=== PATIENT | male | born 1955 | race Caucasian/White ===

== ENCOUNTER 2017-05-16 08:37 | Inpatient (IN) | payer OTHER ==
[~2017-05-16] VITALS: Ht 172.7 cm; Wt 74.0 kg
--- NOTE | ~2017-05-16 | TEE ---
[facility] [address] [place] [address] TRANSESOPHAGEAL ECHOCARDIOGRAM Name: MICHELLE NGO Room #: 418-P ADM IN M.R.#: [id number] Admission: 05/17/17 Attend Phys: Pepito Mccoy MD Discharge: Date of : 59 Date of Service: 05/18/17 0959 Report #: [id number] THIS REPORT FOR: //name// APPROVED REPORT Study performed: 05/18/2017 08:41:40 EXAM: Comprehensive 2D, Doppler, and color-flow Echocardiogram Patient Location: In-Patient Room #: 418 Status: routine BSA: 1.85 HR: 91 bpm BP: 117/74 mmHg Other Information Study Quality: Excellent Indications Congestive Heart Failure Right atrial mass Echo Enhancing Agent Indication: Rule out Shunt Agent(s) / Amount(s) Used: Agitated Saline 7 cc Procedure After obtaining informed consent, patient underwent transesophageal echo in the [employer]. Type of Sedation : Conscious Sedation Sedation was administered by Lashonda Roman RN. Sedation start time: 845 Case end Time: 856 Sedation was achieved intravenously with: Versed (3 mg) Fentanyl (25 mcg) Echo enhancement indication: R/O Septal defect. Echo enhancement agent administered: Agitated Saline The JASON was performed without complications. Throughout the procedure, the blood pressure, pulse oximetry, cardiac rhythm, and rate were monitored. The patient tolerated the procedure without adverse effects. Recovery from conscious sedation was uneventful and vital signs were stable. Left Ventricle [facility] [address] [place] [address] TRANSESOPHAGEAL ECHOCARDIOGRAM Name: MICHELLE NGO Room #: 418-P ADM IN M.R.#: [id number] Admission: 05/17/17 Attend Phys: Pepito Mccoy MD Discharge: Date of : 59 Date of Service: 05/18/17 0959 Report #: [id number] The left ventricle is normal size. There is normal left ventricular wall thickness. Left ventricular ejection fraction is severely decreased. LVEF is 25%. Right Ventricle Right ventricle is dilated. Right ventricle is hypokinetic. Atria Left atrium is dilated. Atrial septal aneurysm. Small amount of right to left shunting consistent with PPO Right atrium is dilated. 2.0cm long, 1.0cm wide, braod-based oval irregular bordered mass in right atrium at base near SVC/RA junction. Differential considerations include residual, organized thrombus following catheter removal, vegeation; primary cardiac tumor. Cor triatriatum. Aortic Valve The aortic valve is normal in structure, trileaflet. No aortic regurgitation is present. There is no aortic valvular stenosis. Mitral Valve The mitral valve is normal in structure. Trace mitral regurgitation. No evidence of mitral valve stenosis. Tricuspid Valve The tricuspid valve is normal in structure. There is moderate tricuspid regurgitation. Pulmonic Valve The pulmonary valve is normal in structure. There is no pulmonic valvular regurgitation. Great Vessels The aortic root is normal in size. Mild calcific plaquing of aorta. No aneurysm Pericardium There is no pericardial effusion. Critical Notification Critical Value: Yes Physician Notified Date: 05/18/2017 <Conclusion> [facility] [address] [place] [address] TRANSESOPHAGEAL ECHOCARDIOGRAM Name: MICHELLE NGO Room #: 418-P ADM IN .R.#: [id number] Admission: 05/17/17 Attend Phys: Pepito Mccoy MD Discharge: Date of : 59 Date of Service: 05/18/17 0959 Report #: [id number] Left ventricular ejection fraction is severely decreased. LVEF is 25%. Right ventricle is dilated. Both atria are dilated dilated. 2.0cm long, 1.0cm wide, broad-based oval irregular bordered heterogeneous mass in right atrium at base near SVC/RA junction. Differential considerations include residual, organized thrombus following catheter removal, vegeation; primary cardiac tumor. Atrial septal aneurysm. Small amount of right to left shunting consistent with PPO. cor triatriatum The aortic valve is normal in structure, trileaflet. No aortic regurgitation or stenosis The mitral valve is normal in structure. Trace mitral regurgitation. There is no pericardial effusion. <ELECTRONICALLY SIGNED> By: Jacek Pate MD, [facility] 05/18/17 0959 8 8 Jacek Pate MD, [facility] /INF
--- NOTE | ~2017-05-16 | EKG ---
[address] [address] ELECTROCARDIOGRAM REPORT Name: MICHELLE NGO Room #: 418-P ADM IN M.R.#: [id number] Admission: 05/17/17 Attend Phys: Pepito Mccoy MD Discharge: Date of : 59 Report #: [id number] THIS REPORT FOR: //name// [facility] Test Date: 2017-05-23 Test Time: 14:52:50 Pat Name: MICHELLE NGO Department: Room: 418 P Gender: M [employer]: Hortencia MARES : 1955 Requested By: Barbra Young Order Number: [id number] MD: Serafin Velarde Measurements Intervals [place] Rate: 94 P: 19 KS: 156 QRS: 12 QRSD: 89 T: 204 QT: 334 QTc: 418 Interpretive Statements Sinus rhythm Borderline repolarization abnormality No previous ECG available for comparison Electronically Signed On 05-23-2017 17:18:55 CDT by Serafin Velarde [email or web address] <ELECTRONICALLY SIGNED> By: Serafin Velarde MD 05/23/17 1718 1452 1452 MD ARCADIO Gallardo
--- NOTE | ~2017-05-16 | HC ---
[facility] [place] [address] CONSULTATION Name: MICHELLE NGO Room #: 418-P ADM IN M.R.#: [id number] Admission: 05/17/17 Attend Phys: Pepito Mccoy MD Discharge: Date of : 59 Report #: [id number] THIS REPORT FOR: //name// CC: Pepito Mccoy DATE OF SERVICE: 05/17/2017 ATTENDING PHYSICIAN: Dr. Mccoy. REASON FOR CONSULTATION: Bacteremia. HISTORY OF PRESENT ILLNESS: A 61-year-old white man with longstanding diabetes mellitus, was residing at [facility] after right BKA, when he developed significant hypoglycemia and altered mental status. His initial workup included a couple of blood cultures that are reported today to show gram-positive cocci. The patient is a rather poor historian. Most of the information is gathered from the review of records. Currently, the patient is awake, comfortable, denies much of any complaints, tells me he has some redness on the right hand, which is obvious as well as having suffered trauma to the right knee recently after having fallen post right BKA. I discussed about possibly removing the hemodialysis catheter on the left chest and he tells me he was aware of that already. PAST MEDICAL HISTORY: Diabetes mellitus of longstanding, complicated by renal failure requiring hemodialysis. The patient has a diagnosis of hypertension, chronic obstructive pulmonary disease, congestive heart failure, polyneuropathy. Diagnosis of acute and subacute endocarditis has been entered on computer as well. I have no significant information regarding that and I will discuss with Dr. Mccoy. Episode of hypoglycemia and hypothermia was detected at the senior living facility, hypoglycemia has now resolved. History of left-sided chest tunneled dialysis catheter. History of right arm AV fistula. DRUG ALLERGIES: None listed. MEDICATIONS: The patient is currently on treatment with vancomycin 500 mg post-hemodialysis 3 times weekly, doxycycline 100 mg p.o. b.i.d., has received vancomycin 1000 mg IV yesterday as well as Zosyn 4.5 grams IV single dose. He is also on treatment with multivitamins daily, cholecalciferol 1000 units daily, warfarin 2 mg p.o. daily, midodrine 10 mg p.o. t.i.d., sevelamer 800 mg p.o. t.i.d., docusate 100 p.o. b.i.d., lactobacillus acidophilus 1 capsule b.i.d., sodium bicarbonate 650 mg p.o. b.i.d., colestipol 1 gram b.i.d. p.r.n., Zolpidem tartrate 5 mg at bedtime p.r.n. SOCIAL HISTORY: See H and P. FAMILY HISTORY: See H and P. [address] [address] CONSULTATION Name: MICHELLE NGO Room #: 418-P [facility] IN M.R.#: [id number] Admission: 05/17/17 Attend Phys: Pepito Mccoy MD Discharge: Date of : 59 Report #: [id number] REVIEW OF SYSTEMS: Noncontributory. PHYSICAL EXAMINATION: GENERAL: Chronically ill-appearing white man, not toxic looking, unable to give significant information. VITAL SIGNS: Was hypothermic yesterday with temperature 93.3, pulse 90, respirations 20, BP 116/72. Today's temperature is 98. HEENMT: Head normocephalic, atraumatic. Pupils reactive. Mouth, no thrush. NECK: Supple. LUNGS: Few basilar crackles. CHEST: Revealed left-sided tunneled dialysis catheter. HEART: S1, S2. No gallop or murmur. ABDOMEN: Soft, no masses or megaly. EXTREMITIES: Reveal some redness of the right distal forearm and some deformities of the right wrist and a right antecubital fossa AV fistula with palpable thrill. The right BKA stump looks fine. There is traumatic lesion on the right knee area with area of hematoma formation, superficial skin breakdown. Status post amputation of the left big toe. Pretibial edema. NEUROLOGIC: Possible paresis, left side. LABORATORY DATA: Sodium 126, potassium 5.1, BUN 84, creatinine 4.2, glucose 159, calcium 8. Protime 73.2, INR 7.4. White blood cell count was 10,600 yesterday and today is 19,400, hemoglobin 10.6 g/dL, platelets 113,000. The white blood cell count differential revealed 90% segmented neutrophils yesterday. MICROBIOLOGY DATA: Blood cultures 2/2 samples revealed gram-positive cocci. ASSESSMENT: 1. Gram-positive cocci bacteremia, possibly infected dialysis catheter. 2. Cellulitis, right upper extremity. 3. Right knee trauma, superficial skin breakdown. 4. Longstanding diabetes mellitus with episode of hypoglycemia. 5. End-stage renal disease, on hemodialysis. 6. Status post recent right below-knee amputation. 7. History of endocarditis. SUGGESTIONS AND RECOMMENDATIONS: We will repeat blood cultures x 2. Consider removing dialysis catheter. Continue vancomycin. Discontinue doxycycline. Echocardiogram. All records to document previous episode of endocarditis. We will discuss situation with Dr. Mccoy. [facility] [address] [place] [address] CONSULTATION Name: MICHELLE NGO Room #: 418-P ADM IN M.R.#: [id number] Admission: 05/17/17 Attend Phys: Pepito Mccoy MD Discharge: Date of : 59 Report #: [id number] Mccoy, thank you for requesting my suggestions. <ELECTRONICALLY SIGNED> By: Keith Velarde MD 05/17/17 1329 1052 1241 Keith Velarde MD /nt
--- NOTE | ~2017-05-16 | HC ---
[facility] [place] [address] CONSULTATION Name: MICHELLE NGO Room #: 418-P [facility] IN M.R.#: [id number] Admission: 05/17/17 Attend Phys: Pepito Mccoy MD Discharge: 05/28/17 Date of : 59 Report #: [id number] THIS REPORT FOR: //name// CC: Pepito Mccoy CHIEF COMPLAINT: Right wrist cellulitis. HISTORY OF PRESENT ILLNESS: This is a 61-year-old gentleman, admitted with right upper extremity cellulitis. He has a long history of endocarditis. He was noted to have a positive blood culture. Orthopedics was consulted to evaluate the right wrist. PAST MEDICAL AND SURGICAL HISTORY: Significant for endocarditis, muscle weakness, end-stage renal disease, hypertension, chronic obstructive pulmonary disease, heart failure, polyneuropathy, essential tremor and vitamin D deficiency. MEDICATIONS: Noted on the APR. ALLERGIES: None. PHYSICAL EXAMINATION: VITAL SIGNS: Notes a temperature of 36.4, pulse is 91, respiratory rate is 18. EXTREMITIES: Examination of the right wrist notes some erythema surrounding the wrist from the dorsum of his wrist extending proximally approximately 10 cm. He has fluid range of motion through his wrist joint without significant increase in pain. He can fully extend his fingers and flex them as well. Motor is intact distally. He has good capillary refill. Ultrasound of the wrist notes tenosynovitis. LABORATORY DATA: His glucose is running up to 300. Blood cultures note gram-positive cocci. IMPRESSION: Right wrist cellulitis, possible tenosynovitis, possible abscess. PLAN: At this point, the plan would be to proceed with an MRI scan to be done as soon as possible to rule out an abscess. We will follow along with you. Thank you very much for allowing me to participate in the care of this pleasant patient. <ELECTRONICALLY SIGNED> By: Clarence Steve MD 05/29/17 0740 1326 1333 Clarence Steve MD /nt
--- NOTE | ~2017-05-16 | O ---
[facility] [place] [address] OPERATIVE REPORT Name: MICHELLE NGO Room #: 418-P [facility] IN M.R.#: [id number] Admission: 05/17/17 Attend Phys: Pepito Mccoy MD Discharge: Date of : 59 Report #: [id number] THIS REPORT FOR: //name// CC: Pepito Mccoy DATE OF SERVICE: 05/24/2017 PREOPERATIVE DIAGNOSES: Right dorsal infectious tenosynovitis, right septic wrist and noninfectious right volar flexor tenosynovitis, osteomyelitis. POSTOPERATIVE DIAGNOSES: 1. Right infectious dorsal extensor tenosynovitis. 2. Right septic wrist with osteomyelitis. 3. Right infectious flexor tenosynovitis. PROCEDURE PERFORMED: 1. Right debridement dorsal extensor tendon sheath. 2. Right debridement of soft tissue and bone, right wrist and carpal bones. 3. Debridement right volar flexor compartment/tendon volar flexor compartment. SURGEON: Alana Stewart MD ANESTHESIA: Axillary nerve block anesthesia. ESTIMATED BLOOD LOSS: 100 mL. COMPLICATIONS: None. CONDITION: Stable. DISPOSITION: Recovery room. Drains were placed x 2, one dorsally and one volarly. TOURNIQUET TIME: 72 minutes on forearm. SPECIMENS: Soft tissue and swabs were sent to microbiology. INDICATIONS FOR THE PROCEDURE: The risks, benefits, alternatives and complications were discussed that included but were not limited to infection, damage to vessels or nerves, incomplete relief of his symptoms. Informed consent was obtained. The correct extremity was identified and labeled by myself after verbal confirmation of patient as well as visual confirmation and signed informed consent. DESCRIPTION OF PROCEDURE: The patient brought back to the operating room and placed on the operating table in supine position. He did not receive [facility] [address] [place] [address] OPERATIVE REPORT Name: MICHELLE NGO Room #: 418-P ADM IN M.R.#: [id number] Admission: 05/17/17 Attend Phys: Pepito Mccoy MD Discharge: Date of : 59 Report #: [id number] preoperative antibiotics. The right extremity was sterilely prepped and draped in usual fashion. Final timeout was taken to verify correct patient, operative procedure, operative site, all concurred. At the forearm, tourniquet was placed over padding in the proximal forearm. The arm was elevated but was not exsanguinated and the tourniquet inflated. Next, a dorsal approach was done to the wrist at the third compartment over Doris's tubercle. The incision measured approximately 10 cm. Dissection was carried down through the subcutaneous tissue with tenotomy scissors. Purulent fluid was immediately obtained. The 2nd, 3rd and 4th compartment were identified and incised and fully debrided. There was a significant amount of purulent fluid. There was no significant amount of tenosynovitis. Next, a T-type capsulotomy was performed. There was some purulent fluid within the wrist joint. The capitate and trapezoid had a cortical defect dorsally. This was debrided using a curette. Fluoroscopy was brought in, which confirmed the identity of the debridement. Upon applying volar pressure at the flexor tendon sheath, purulent fluid was expressed into the wrist joint. At this point, I elected to perform a volar flexor compartment debridement. Approximately a 10 cm incision was made over the carpal tunnel and stenting in an oblique angle of the proximal forearm. Dissection was carried down through subcutaneous tissue with tenotomy scissors. The median nerve was identified and carefully protected. Deep flexion compartment was identified and using a mosquito hemostat, a significant amount of purulent fluid was expressed. The area was thoroughly debrided. All the flexor tendons were ruptured. Next, the flexor compartment was irrigated with a liter of antibiotic saline using the Pulsavac. Next, the finger trap traction was placed on the index and long fingers and the radiocarpal joint was debrided using a Pulsavac with 2 remaining liters. Once this was done, the area was thoroughly cleaned. A deep drain was placed volarly and dorsally. These were sutured. The wounds were then closed with 4-0 nylon suture. The wounds were dressed with Adaptic and sterile gauze. Of note, bone was taken from the capitate and trapezoid and swabs were taken from the purulent fluid. He was placed in a bulky dressing and a volar slab splint. All fingers were pink with brisk capillary refill at the conclusion of case. After deflation of the tourniquet in the recovery room, all sponge and needle counts were correct. The patient transferred postoperative recovery room in satisfactory condition. By: 1535 1703 Alana Stewart MD /nt
[2017-05-16 08:38] VITALS: BP 116/72
[2017-05-16 09:13] LABS: CALCIUM 8.2 mg/dL (8.5-10.1); CREATININE 3.8 mg/dL (0.7-1.3); POTASSIUM 4.3 mmol/L (3.5-5.1)
[2017-05-16 10:34] LABS: ABSOLUTE NEUTROPHILS 9.6 thou/uL (1.4-8.2); BASOPHILS 0.4 % (0.0-2.0); EOSINOPHILS 0.3 % (0.0-3.0); HEMOGLOBIN 10.7 gm/dL (14.0-18.0); LYMPHOCYTES 2.3 % (24.0-44.0); MCH 29.9 pg (26.0-34.0); MCHC 32.4 g/dL (28.0-37.0); MCV 92.4 fL (80.0-100.0); PLATELET COUNT 105 thou/uL (150-400); RBC 3.57 mil/uL (4.50-6.00); RDW 20.1 % (10.5-14.5); WBC 10.6 thou/uL (4.0-11.0)
[2017-05-16] MEDS ORDERED: VITAMIN D3400 UNIT PO (12:32)
[2017-05-16] MEDS ORDERED: COLESTIPOL HCL1 G1 PO (12:33)
[2017-05-16] MEDS ORDERED: PROBIOTIC1 EAC1 PO (12:34)
[2017-05-16] MEDS ORDERED: JUVEN PACKET1 EAC1 PO (12:34)
[2017-05-16] MEDS ORDERED: MIDODRINE HCL 55 M1 PO (12:34)
[2017-05-16] MEDS ORDERED: VITAMIN B-1100 M1 PO (12:35)
[2017-05-16] MEDS ORDERED: SODIUM BICARBO650 M3 PO (12:35)
[2017-05-16] MEDS ORDERED: NEPHROCAPS SOFT1 CAP PO (12:36)
[2017-05-16] MEDS ORDERED: COLACE100 MG PO (12:36)
[2017-05-16] MEDS ORDERED: MELATONIN10 M2 PO (12:37)
[2017-05-16] MEDS ORDERED: RENVELA800 MG PO (12:37)
[2017-05-16] MEDS ORDERED: PAXIL10 MG PO (12:39)
[2017-05-16] MEDS ORDERED: KEFLEX250 MG PO (12:39)
[2017-05-16] MEDS ORDERED: COUMADIN 2 MG TA2 M1 PO (12:39)
[2017-05-16] MEDS ORDERED: NOVOLOG100 UNIT/1 SUBQ (12:40)
[2017-05-16] MEDS ORDERED: LEVEMIR SUBQ (12:42)
[2017-05-16 13:16] VITALS: BP 121/77
[2017-05-16 14:47] VITALS: BP 121/77
[2017-05-16 15:01] VITALS: BP 111/79
[2017-05-16 21:15] VITALS: BP 88/53
[2017-05-17 05:00] VITALS: BP 136/65
[2017-05-17 06:02] LABS: HEMATOCRIT 32.5 % (42.0-52.0); HEMOGLOBIN 10.6 gm/dL (14.0-18.0); MCH 29.7 pg (26.0-34.0); MCHC 32.7 g/dL (28.0-37.0); RBC 3.57 mil/uL (4.50-6.00); RDW 20.1 % (10.5-14.5); WBC 19.4 thou/uL (4.0-11.0)
[2017-05-17 06:18] LABS: ALBUMIN 1.3 g/dL (3.4-5.0); CREATININE 4.2 mg/dL (0.7-1.3); POTASSIUM 5.1 mmol/L (3.5-5.1)
[2017-05-17 07:04] LABS: INR 7.4
[2017-05-17 07:05] LABS: PROTIME 73.2 Seconds (9.3-11.4)
[2017-05-17 08:35] VITALS: BP 123/71
[2017-05-17 19:30] VITALS: BP 115/67
[2017-05-17 23:08] LABS: HEPATITIS B SURFACE AG Negative (Negative)
[2017-05-18 02:55] VITALS: BP 112/71
[2017-05-18 05:43] LABS: PROTIME 18.2 Seconds (9.3-11.4)
[2017-05-18 05:48] LABS: INR 1.8
[2017-05-18 07:45] VITALS: BP 117/74
[2017-05-18 15:10] VITALS: BP 117/74
[2017-05-18 19:09] VITALS: BP 109/71
[2017-05-19 03:31] VITALS: BP 116/72
[2017-05-19 04:40] LABS: ALBUMIN 1.1 g/dL (3.4-5.0); CALCIUM 7.7 mg/dL (8.5-10.1); CREATININE 3.4 mg/dL (0.7-1.3); PHOSPHORUS 2.5 mg/dL (2.5-4.9); POTASSIUM 4.4 mmol/L (3.5-5.1)
[2017-05-19 04:43] LABS: INR 1.4; PROTIME 14.3 Seconds (9.3-11.4)
[2017-05-19 07:05] VITALS: BP 122/73
[2017-05-19 20:08] VITALS: BP 118/67
[2017-05-20 03:52] LABS: INR 1.3; PROTIME 13.5 Seconds (9.3-11.4)
[2017-05-20 05:25] VITALS: BP 111/65
[2017-05-20 07:00] LABS: HEMATOCRIT 31.2 % (42.0-52.0); MCH 29.2 pg (26.0-34.0); MCHC 32.1 g/dL (28.0-37.0); RBC 3.43 mil/uL (4.50-6.00); RDW 19.1 % (10.5-14.5); WBC 19.7 thou/uL (4.0-11.0)
[2017-05-20 07:13] LABS: ALBUMIN 1.1 g/dL (3.4-5.0); CALCIUM 7.3 mg/dL (8.5-10.1); CREATININE 2.7 mg/dL (0.7-1.3); PHOSPHORUS 2.1 mg/dL (2.5-4.9); POTASSIUM 3.8 mmol/L (3.5-5.1); URIC ACID* 4.6 mg/dL (2.6-7.2)
[2017-05-20 07:29] VITALS: BP 113/70
[2017-05-20 16:40] VITALS: BP 121/77
[2017-05-20 19:09] VITALS: BP 124/70
[2017-05-21 03:16] VITALS: BP 104/60
[2017-05-21 07:26] LABS: INR 1.4; PROTIME 13.9 Seconds (9.3-11.4)
[2017-05-21 08:00] VITALS: BP 99/59
[2017-05-21 09:35] VITALS: BP 99/59
[2017-05-21 16:01] VITALS: BP 119/68
[2017-05-21 20:00] VITALS: BP 117/70
[2017-05-21 20:05] VITALS: BP 117/70
[2017-05-22 05:52] VITALS: BP 115/56
[2017-05-22 06:25] LABS: INR 1.4; PROTIME 14.2 Seconds (9.3-11.4)
[2017-05-22 06:32] LABS: ALBUMIN 1.2 g/dL (3.4-5.0); CALCIUM 7.6 mg/dL (8.5-10.1)
[2017-05-22 06:49] LABS: CREATININE 3.7 mg/dL (0.7-1.3)
[2017-05-22 07:36] VITALS: BP 113/70
[2017-05-22 11:10] VITALS: BP 111/64
[2017-05-22 15:10] VITALS: BP 103/64; BP 129/44
[2017-05-22 19:08] VITALS: BP 119/54
[2017-05-22 20:00] VITALS: BP 119/54
[2017-05-23 04:05] VITALS: BP 121/46
[2017-05-23 06:50] LABS: INR 1.4; PROTIME 13.9 Seconds (9.3-11.4)
[2017-05-23 07:30] VITALS: BP 112/63
[2017-05-23 12:52] LABS: HEMOGLOBIN 9.3 gm/dL (14.0-18.0); MCH 29.1 pg (26.0-34.0); MCV 93.7 fL (80.0-100.0); PLATELET COUNT 187 thou/uL (150-400); RDW 20.3 % (10.5-14.5); WBC 16.8 thou/uL (4.0-11.0)
[2017-05-23 13:25] LABS: ABSOLUTE NEUTROPHILS 15.6 thou/uL (1.4-8.2); ANISOCYTOSIS 1+; PLATELET ESTIMATE NORMAL
[2017-05-23 20:00] VITALS: BP 95/64
[2017-05-24 04:00] VITALS: BP 105/61
[2017-05-24 08:00] VITALS: BP 121/58
[2017-05-24 08:30] LABS: CALCIUM 7.7 mg/dL (8.5-10.1)
[2017-05-24 08:31] LABS: CREATININE 2.6 mg/dL (0.7-1.3)
[2017-05-24 08:33] LABS: ALBUMIN 1.2 g/dL (3.4-5.0); PHOSPHORUS 2.4 mg/dL (2.5-4.9)
[2017-05-24 10:02] VITALS: BP 113/51
[2017-05-24 19:35] VITALS: BP 107/59
[2017-05-25 05:09] VITALS: BP 124/54
[2017-05-25 05:14] LABS: HEMATOCRIT 24.1 % (42.0-52.0); HEMOGLOBIN 7.8 gm/dL (14.0-18.0)
[2017-05-25 05:15] LABS: ALBUMIN 1.2 g/dL (3.4-5.0); PHOSPHORUS 3.4 mg/dL (2.5-4.9); POTASSIUM 4.2 mmol/L (3.5-5.1)
[2017-05-25 07:10] VITALS: BP 121/35
[2017-05-25 16:13] VITALS: BP 113/63
[2017-05-25 20:00] VITALS: BP 115/70
[2017-05-25 20:19] VITALS: BP 115/70
[2017-05-26 04:25] VITALS: BP 127/75
[2017-05-26 15:50] VITALS: BP 112/67
[2017-05-26 20:15] VITALS: BP 111/37
[2017-05-27 03:20] VITALS: BP 108/87
[2017-05-27 06:13] LABS: HEMATOCRIT 20.1 % (42.0-52.0); MCV 93.2 fL (80.0-100.0); RBC 2.15 mil/uL (4.50-6.00)
[2017-05-27 06:15] LABS: MCH 29.8 pg (26.0-34.0); MCHC 31.9 g/dL (28.0-37.0); RDW 21.7 % (10.5-14.5); WBC 11.7 thou/uL (4.0-11.0)
[2017-05-27 06:17] LABS: HEMOGLOBIN 6.4 gm/dL (14.0-18.0)
[2017-05-27 06:29] LABS: INR 1.5; PROTIME 15.3 Seconds (9.3-11.4)
[2017-05-27 08:04] VITALS: BP 97/47
[2017-05-27 14:45] VITALS: BP 91/52
[2017-05-27 20:00] VITALS: BP 85/41
[2017-05-28] VITALS: BP 90/57
[2017-05-28 04:00] VITALS: BP 91/60
[2017-05-28 06:58] LABS: HEMATOCRIT 21.5 % (42.0-52.0); MCH 30.2 pg (26.0-34.0); MCHC 32.6 g/dL (28.0-37.0); MCV 92.7 fL (80.0-100.0); RBC 2.32 mil/uL (4.50-6.00); RDW 21.8 % (10.5-14.5); WBC 11.9 thou/uL (4.0-11.0)
[2017-05-28 07:00] VITALS: BP 124/74
[2017-05-28 07:19] LABS: ALBUMIN 1.2 g/dL (3.4-5.0); CALCIUM 7.8 mg/dL (8.5-10.1); CREATININE 3.7 mg/dL (0.7-1.3); PHOSPHORUS 4.2 mg/dL (2.5-4.9); POTASSIUM 4.3 mmol/L (3.5-5.1)
[2017-05-28 07:55] VITALS: BP 108/63
[2017-05-28 09:27] VITALS: BP 111/62; BP 116/61
[2017-05-28] MEDS ORDERED: GENTAMICIN40 MG/1 ML IV (12:30)
[2017-05-28] MEDS ORDERED: VAN500AD IV (12:32)
[2017-05-28] MEDS ORDERED: COREG3.125 MG PO (12:33)
[2017-05-28] MEDS ORDERED: ENOXAPARIN30 MG/0.1 SUBQ (12:33)
[2017-05-28] MEDS ORDERED: HYDROCODON-ACE1 EAC7 PO (12:34)
[2017-05-28] MEDS ORDERED: AMBIEN 5 MG TABL5 M1 PO (12:34)
[2017-05-28] MEDS ORDERED: TYLENOL EXTRA500 MG PO (12:34)
[2017-05-28] MEDS ORDERED: ARANESP100 MCG/1 IV (12:57)
[2017-05-28] MEDS ORDERED: IRON325 PO (13:00)
[2017-05-28 16:00] VITALS: BP 116/65
== END 2017-05-28 18:39 | DRG 853 ==
LOC: ER 08:37 → EROBS 11:53 → 4E 15:12
PROVIDERS: Anesthesiology; Emergency Medicine; Internal Medicine; Internal Medicine Nephrology; Orthopaedic Surgery Hand Surgery
PROC: 5A1D70Z Performance of Urinary Filtration, Intermittent, Less than 6 Hours Per Day (ICD-10-PCS; 2017-05-17)
PROC: B24BZZ4 Ultrasonography of Heart with Aorta, Transesophageal (ICD-10-PCS; principal; 2017-05-18)
PROC: 5A1D70Z Performance of Urinary Filtration, Intermittent, Less than 6 Hours Per Day (ICD-10-PCS; 2017-05-18)
PROC: 5A1D70Z Performance of Urinary Filtration, Intermittent, Less than 6 Hours Per Day (ICD-10-PCS; 2017-05-20)
PROC: 5A1D70Z Performance of Urinary Filtration, Intermittent, Less than 6 Hours Per Day (ICD-10-PCS; 2017-05-21)
PROC: 5A1D70Z Performance of Urinary Filtration, Intermittent, Less than 6 Hours Per Day (ICD-10-PCS; 2017-05-23)
PROC: 0LB70ZZ Excision of Right Hand Tendon, Open Approach (ICD-10-PCS; 2017-05-24)
PROC: 5A1D70Z Performance of Urinary Filtration, Intermittent, Less than 6 Hours Per Day (ICD-10-PCS; 2017-05-24)
PROC: 0PBM0ZZ Excision of Right Carpal, Open Approach (ICD-10-PCS; 2017-05-24)
PROC: 5A1D70Z Performance of Urinary Filtration, Intermittent, Less than 6 Hours Per Day (ICD-10-PCS; 2017-05-24)
PROC: 02PYX3Z Removal of Infusion Device from Great Vessel, External Approach (ICD-10-PCS; 2017-05-25)
PROC: 30233N1 Transfusion of Nonautologous Red Blood Cells into Peripheral Vein, Percutaneous Approach (ICD-10-PCS; 2017-05-28)
DX: A41.89 Other specified sepsis (principal); N18.6 End stage renal disease; I33.0 Acute and subacute infective endocarditis; L03.113 Cellulitis of right upper limb; I42.9 Cardiomyopathy, unspecified; M00.9 Pyogenic arthritis, unspecified; M86.8X8 Other osteomyelitis, other site; I50.42 Chronic combined systolic (congestive) and diastolic (congestive) heart failure; I13.0 Hypertensive heart and chronic kidney disease with heart failure and stage 1 through stage 4 chronic kidney disease, or unspecified chronic kidney disease; T68.XXXA Hypothermia, initial encounter; D63.8 Anemia in other chronic diseases classified elsewhere; E11.42 Type 2 diabetes mellitus with diabetic polyneuropathy; I25.10 Atherosclerotic heart disease of native coronary artery without angina pectoris; E11.649 Type 2 diabetes mellitus with hypoglycemia without coma; R25.1 Tremor, unspecified; J44.9 Chronic obstructive pulmonary disease, unspecified; S89.91XA Unspecified injury of right lower leg, initial encounter; X58.XXXA Exposure to other specified factors, initial encounter; Y93.89 Activity, other specified; Y92.89 Other specified places as the place of occurrence of the external cause; Y99.8 Other external cause status; M65.131 Other infective (teno)synovitis, right wrist; M65.849 Other synovitis and tenosynovitis, unspecified hand; B95.62 Methicillin resistant Staphylococcus aureus infection as the cause of diseases classified elsewhere; E11.51 Type 2 diabetes mellitus with diabetic peripheral angiopathy without gangrene; S62.101A Fracture of unspecified carpal bone, right wrist, initial encounter for closed fracture; B95.61 Methicillin susceptible Staphylococcus aureus infection as the cause of diseases classified elsewhere; I27.20 Pulmonary hypertension, unspecified; I48.91 Unspecified atrial fibrillation; E11.69 Type 2 diabetes mellitus with other specified complication; E11.621 Type 2 diabetes mellitus with foot ulcer; S66.119A Strain of flexor muscle, fascia and tendon of unspecified finger at wrist and hand level, initial encounter; E11.22 Type 2 diabetes mellitus with diabetic chronic kidney disease; Z89.412 Acquired absence of left great toe; Z86.73 Personal history of transient ischemic attack (TIA), and cerebral infarction without residual deficits
CPT/HCPCS: 10183; 32100; 50010; 50101; 50386; 53078; 56526; 56527; 57091; 64039; 70005

== ENCOUNTER 2017-07-08 06:54 | Inpatient (IN) | payer OTHER ==
[~2017-07-08] VITALS: Ht 152.4 cm; Wt 65.8 kg
--- NOTE | ~2017-07-08 | H ---
[facility] [place] [address] HISTORY AND PHYSICAL Name: MICHELLE NGO Room #: 452-P ADM IN M.R.#: [id number] Admission: 07/08/17 Attend Phys: Pepito Mccoy MD Discharge: Date of : 59 Report #: [id number] THIS REPORT FOR: //name// CC: Pepito Mccoy MD [facility] Alana Stewart MD DATE OF SERVICE: 07/08/2017 CHIEF COMPLAINT: Preop amputation, right forearm. HISTORY OF PRESENT ILLNESS: The patient is a 61-year-old male who has been in and out of hospitals and care facilities since at least 02/2017. Prior to that, he had an amputation on the right lower extremity below the knee because of peripheral arterial disease and infection. He is a dialysis patient and previously lived with his twin brother. 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 Subsequent to that, he has been at two [facility] and according to his mother, the main history provider, and the medical records, it was decided that the septic arthritis in the right wrist was not going to heal with conservative, but aggressive IV antibiotic therapy and the best option for trying to heal it would be amputation on the right upper extremity at the level of the forearm. Arrangements were made through Dr. Alana Stewart and the patient was brought to [facility] where it was initially planned for surgery today. As Dr. Mccoy was his last attending physician here at [facility] prior to discharge, his services were requested in the medical management of this patient. PAST MEDICAL HISTORY: Very extensive and in addition to the aforementioned, the patient has had significant anemia requiring Aranesp therapy and prior transfusions in the last couple of months. Essential tremors. End-stage renal disease on hemodialysis. Type 2 diabetes mellitus. Peripheral arterial disease. Cardiomyopathy with a left ventricular ejection fraction of 25% (ischemic?). Peripheral neuropathy. History of alcohol abuse. Clostridium difficile colitis, currently. Prior left great toe amputation. He has a right upper extremity AV fistula proximally. He has had a double hernia repair in the past. He has a right atrial mass, which is suspected to be organized clot from prior intravascular device. ALLERGIES: He has no known drug allergies. [facility] [address] [place] [address] HISTORY AND PHYSICAL Name: MICHELLE NGO Room #: 452-P [facility] IN M.R.#: [id number] Admission: 07/08/17 Attend Phys: Pepito Mccoy MD Discharge: Date of : 59 Report #: [id number] MEDICATIONS: List provided by [facility] on arrival is as follows: P.r.n. Tylenol, diltiazem ER coated beads 100 mg by mouth every morning, docusate sodium 100 mg b.i.d., famotidine 20 mg nightly, ferrous sulfate 325 mg b.i.d., hydrocodone/acetaminophen 5/325 one tablet every 4 hours as needed for pain, lactobacillus probiotic one tablet by mouth twice daily, Aspercreme lidocaine 4% patch on 12 hours and off 12 hours daily, melatonin 9 mg nightly at bedtime, midodrine hydrochloride 5 mg tablets that is 2 tablets 3 times daily with meals, vitamin B complex with vitamin C and folic acid (Nephro-Luca) daily, Renvela 800 mg t.i.d., silver sulfadiazine cream to the right knee area twice daily and as needed after soiling, it is also being applied to a coccyx wound. Zolpidem 5 mg by mouth nightly as needed for insomnia, p.r.n. glucose for hypoglycemia, Glucagon p.r.n. severe hypoglycemia IM, Aranesp 100 mcg every Sunday at dialysis, Accu-Cheks before meals and bedtime with sliding scale with Humulin insulin, colestipol 2 grams by mouth daily at 10:00 a.m., paroxetine 20 mg by mouth daily for treatment of depression and Cerefolin capsule by mouth daily. 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 He is currently a nonsmoker, but I believe he smoked in the past. There is a mention of alcoholism in the past in the medical record, but the patient is unable to discuss this with me. He has a twin brother who also has diabetes. FAMILY HISTORY: Otherwise, uncertain except that his father of a traumatic brain injury several days prior to the first hospitalization for the patient last fall in September, I believe. REVIEW OF SYSTEMS: As mentioned above. The patient is unable to give any useful information at this time. PHYSICAL EXAMINATION: VITAL SIGNS: Recorded in the computer: GENERAL: The patient is a 61-year-old male who looks significantly older than his stated age. He specifically looks much older than his twin brother who was seated across the room during our visit today. The patient is very obviously encephalopathic and is unable to answer any questions in any meaningful way, although at times he will repeat cant phrases that he knows. His eyes do not track me when I walk around him and speak to him. HEENT: Conjunctivae are slightly icteric and the skin is quite pale. The oropharynx is slightly dry. Cheeks appear sunken hollow. NECK: Without adenopathy or thyromegaly or mass. LUNGS: Fairly clear, but I could not get the patient to take deep breaths. CARDIAC: Significant with a regular rhythm. ABDOMEN: Soft. Bowel sounds are present, but few. No visceromegaly, he appears to have had significant weight loss in the past with signs of wasting. EXTREMITIES: The right upper extremity is wrapped from the forearm down to the hand. The fingers that are observable without removing his wraps are gangrenous [address] [address] HISTORY AND PHYSICAL Name: MICHELLE NGO Room #: 452-P ADM IN M.R.#: [id number] Admission: 07/08/17 Attend Phys: Pepito Mccoy MD Discharge: Date of : 59 Report #: [id number] in appearance of the dry sort. The patient has had a right below the knee amputation with appropriate wound healing noted. The patient has also had a left great toe amputation with healing. Coccygeal wound noted. MENTAL STATUS: The patient is awake, but unaware of his surroundings. He cannot state where he is nor does he show any signs of recognition of his mother seated next to him or his brother across the room. He speaks intermittently about things that he is seeing which do not physically appear to exist. He has some signs of hallucinating. He is otherwise calm. LABORATORY DATA: Done on admission show a white blood cell count that is elevated at 17,200 on the CBC; hemoglobin is low at 7.4 and hematocrit of 23.0. Mean cell volume is 92.3 and the RDW is 18.1 and that is elevated. Platelet count is 191,000. Differential is 91.3% segs, 3.6% lymphs, 3.9% monocytes, 0.6% eosinophils and basophils and the absolute neutrophil count was 15,700 and 2+ anisocytosis is noted on the microscopic evaluation. His protime is 15.5 with an INR of 1.5, I believe he was on Coumadin and this has been stopped in the last several days. Chemistry shows sodium of 129, potassium of 3.9, chloride 95, bicarbonate 24, BUN of 26, creatinine 2.3, anion gap is 10, glucose 266, calcium of 8.0 and the estimated GFR is 29. A couple of Accu-Cheks of 129 and 134 have been performed since his admission. ASSESSMENT AND PLAN: 1. Septic arthritis of the right wrist with overt and radiographic signs of gangrene in the patient of great medical complexity. Clearly amputation is indicated in this very unfortunate gentleman. In the best of circumstances, surgical risks are high. I have requested consultations with Infectious Diseases and Cardiology and Nephrology has already seen the patient. I had a lengthy visit with the patient's mother and twin brother. We discussed hospice briefly, but more importantly discussed surgical risks and long-term prognosis at the present time given all the other underlying problems. My goal for this patient has mostly to do with palliation. I do think amputation of the distal right upper extremity would be beneficial in this regard. I will obtain EKG and chest x-ray and the further assessment of the preop clearance of this patient. 2. Infectious encephalopathy (versus metabolic) -- his previous discharge notes that the patient will likely need lifelong antibiotic therapy for methicillin-resistant Staphylococcus aureus. Repeat blood cultures have been ordered for today and intravenous vancomycin resumed. We will also continue oral vancomycin for treatment of his Clostridium difficile colitis. Probiotic therapy is also indicated. As the patient is unable to give informed consent for himself, I discussed the matter at length with his mother and brother and they agree and I feel it is medically necessary to proceed with the amputation and continued aggressive antibiotic care. 3. End-stage renal disease and anemia (due to chronic inflammation and hypoproliferative due to renal disease) -- discussed the case with Dr. Hill and we will have the patient get two units of packed red blood cells during hemodialysis tomorrow in the hours prior to surgery. [facility] [address] [place] [address] HISTORY AND PHYSICAL Name: MICHELLE NGO Room #: 452-P ADM IN M.R.#: [id number] Admission: 07/08/17 Attend Phys: Pepito Mccoy MD Discharge: Date of : 59 Report #: [id number] 4. Type 2 diabetes mellitus. Sliding scale has been started. See orders. 5. Clinically malnourished, possibly severe - we will check liver functions and an albumin. Given the patient's current encephalopathic state and the need for good wound healing after surgery, we will place a feeding tube tonight and start tube feeding until midnight after which the patient will be n.p.o. and then resume the tube feedings after surgery when the patient is cleared to get enteral nutrition again. His poor mental status makes him very high risk for taking any of his medications orally and should his mental status not clear soon, he may require a swallowing study to confirm. 6. Cardiomyopathy, presumably ischemic, with ejection fraction of 25% -- careful weighing and monitoring of fluid inputs perioperatively will be crucial in his survival and recovery. 7. Numerous medical conditions as outlined above. We will try and stick with the patient's basic medical regimen during his stay at the hospital. It is my understanding that he will be returning to [facility] after completing his stay here. I would certainly like to see him more awake and stable enough for transfer back there prior to sending him. I will hold giving medical clearance for surgery until I see orders spoken with the consulting specialists and results of EKG and chest x-ray. <ELECTRONICALLY SIGNED> By: Jacinto Garcia MD 07/09/17 1144 09 [id number] Jacinto Garcia MD /nt
--- NOTE | ~2017-07-08 | PATH ---
[facility] [address] [place] [address] PATHOLOGY RPT PROCEDURE Name: MICHELLE HENDRIX Room #: 452-P ADM IN M.R.#: [id number] Admission: 07/08/17 Date of : 59 Discharge: Report #: [id number] Path Case #: [id number] [facility] Accession Number: [id number] . 01 Material submitted: . RIGHT HAND AND WRIST . 02 Diagnosis: Hand, right hand and wrist, amputation: - Gangrenous necrosis associated with ulceration. - Arteries (both ulnar and radial) markedly occluded by calcific sclerosis. - Skin margin as well as skeletal muscle margin viable and unremarkable. - Bone extending 2.7 cm beyond soft tissue margin, grossly viable. (IUV:pit; 07/12/2017) QTP/07/12/2017 . 02 Electronically signed: . Yessica Hoff MD, Pathologist NPI- [id number] . 01 Gross description: . Received fresh in a biohazard bag labeled "Michelle Hendrix, right hand and wrist" is a trans ulnar/radial amputation of the right hand and distal forearm. The specimen measures 29.5 cm from the margin to the tip of the second finger with hand (14.0 cm wrist to tip of second finger, 8.0 cm side-side and 4.5 cm dorsal-palmar) distal forearm (11.5 cm margin-wrist and 6.4 cm in greatest diameter). There is 2.7 cm of ulnar and radial bone extending above the soft tissue margin. All 5 fingers are present. . The thumb, distal tip of first finger, and distal tip of second finger are mummified and necrotic. The thumb shows the worst mummification artifact. At the palmar aspect of the proximal hand is a necrotic lesion ligated with black suture material measuring 2.5 days by 2.0 cm. Proximal to this lesion at the wrist is a previous incision ligated with suture material, 2.0 cm in length. At the dorsal wrist is a necrotic lesion with surrounding black suture material measuring 5.0 x 3.0 cm greatest dimension. The remaining skin is merritt-brown. The radial and ulnar arteries are visible at the margin. The arteries are dissected for a linear length of 10.0 cm. There is marked atherosclerosis at the arterial margins and extending 10.0 cm. There is 90% occlusion of the arteries. Site Leasing Agent sections are submitted A1-A7 . A1 gangrene at thumb A2 lesion at proximal palmar hand A3 gangrene dorsal hand over wrist A4 margin (skin and muscle) [address] [address] PATHOLOGY RPT PROCEDURE Name: MICHELLE HENDRIX Room #: 452-P ADM IN M.R.#: [id number] Admission: 07/08/17 Date of : 59 Discharge: Report #: [id number] Path Case #: [id number] A5 radial artery A6 ulnar artery neck A7 marrow of radial and ulnar bone (RISHABH; 07/11/2017) JBR/JBR . 02 Pathologist provided ICD-10: I70.8, I96 . 02 CPT . 349573 Performed at: 01 [facility] [id number] [facility] [address], [place], [place] [id number] MD Marlon Feldman MD Phone: [phone] Performed at: [address] [facility] [address] [id number] MD Yessica Hoff MD Phone: [phone]
--- NOTE | ~2017-07-08 | EKG ---
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
--- NOTE | ~2017-07-08 | O ---
[facility] [address] [place] [address] OPERATIVE REPORT Name: MICHELLE NGO Room #: 452-P [facility] IN M.R.#: [id number] Admission: 07/08/17 Attend Phys: Pepito Mccoy MD Discharge: Date of : 59 Report #: [id number] THIS REPORT FOR: //name// CC: Pepito Stewart PREOPERATIVE DIAGNOSES: Right hand ischemia and failure of operative and medical treatment for a septic wrist with osteomyelitis. POSTOPERATIVE DIAGNOSES: Right hand ischemia and failure of operative and medical treatment for a septic wrist with osteomyelitis. PROCEDURE PERFORMED: Right amputation through the forearm. SURGEON: Alana Stewart MD. ANESTHESIA: General mask anesthesia. ESTIMATED BLOOD LOSS: 20 mL. TOURNIQUET TIME: None was utilized. COMPLICATIONS: None. CONDITION: Stable. DISPOSITION: Recovery room. INDICATIONS: The patient is a 61-year-old male with the above-mentioned diagnosis. He elects for operative treatment. The risks, benefits, alternatives of complications were discussed including but not limited to inability to heal this wound requiring more surgery, infection and stump pain. Informed consent was obtained. The correct extremity was identified and labeled by myself after verbal confirmation of the patient and his family as well as visual confirmation and signed informed consent. DESCRIPTION OF PROCEDURE: The patient was brought back to the OR and placed on the operating room table in supine position. He received preoperative antibiotics. The fistula was noted to be just distal to the elbow. The upper extremity was sterilely prepped and draped in usual fashion. A final time-out was taken to verify correct patient, operative procedure, operative site, all concurred. The necrotic and infected tissue was completely encased in a stockinette, and then, DuraPrep was used to prep again the surgical site. The anterior and posterior flaps were created. Skin was dissected down through subcutaneous tissue with tenotomy scissors. Bipolar cautery and regular cautery were utilized. The radial and ulnar arteries were easily identified. They were doubly tied proximally and singly tied distally. They were significantly [address] [address] OPERATIVE REPORT Name: JENIMICHELLE Room #: 452-P ADM IN M.R.#: [id number] Admission: 07/08/17 Attend Phys: Pepito Mccoy MD Discharge: Date of : 59 Report #: [id number] calcified. Each nerve was identified. Tension was applied, and it was sharply transected in order to allow them to retract into the muscle. The periosteum was elevated off the radius and ulna and each was cut with an oscillating saw. The edges were feathered in order to decrease any sharp edges. The wound was then thoroughly irrigated. Hemostasis was achieved. The fascia was closed with a 2-0 Vicryl. The skin was then closed with 4-0 nylon suture. The wound was dressed with Xeroform and sterile gauze. He was placed in a bulky dressing. I was unable to wrap a compression wrap around due to the proximal nature of his fistula. The patient was transferred to postoperative recovery room in stable condition. He tolerated the procedure well. All sponge and needle counts were correct. By: [id number] Alana Stewart MD /nt
--- NOTE | ~2017-07-08 | HC ---
[facility] [place] [address] CONSULTATION Name: MICHELLE NGO Room #: 452-P ADM IN M.R.#: [id number] Admission: 07/08/17 Attend Phys: Pepito Mccoy MD Discharge: Date of : 59 Report #: [id number] THIS REPORT FOR: //name// CC: Pepito Stewart DATE OF SERVICE: 07/08/2017 CONSULTATION: Infectious Diseases. HISTORY OF PRESENT ILLNESS: The patient is a 61-year-old white male who comes to the hospital for elective amputation of the right hand. The patient had been hospitalized at [facility] with MRSA bacteremia and endocarditis from 05/17 until 05/28 of this year. At that time, the patient was found to have high-grade MRSA bacteremia with 12 positive blood cultures out of 12 from 05/16/2017 to 05/23/2017. On 05/25/2017, the patient had 2 negative cultures. He was treated with vancomycin and gentamicin. He was found to have a septic right wrist and underwent open debridement by Dr. Stewart on 05/21/2017. He was discharged back to [facility] for continued IV antibiotic therapy and dialysis. Apparently, the right hand has not healed well and has developed a significant mummification of the digits and a nonhealing wound on the dorsum of the hand, with disruption of the extensor mechanism. He is developing contractures into a claw hand. In this setting, amputation has been recommended. PAST MEDICAL HISTORY: Past history is significant for diabetes with end-stage renal disease. The patient has a history of stroke. He has a fairly recent right below-knee amputation and then has fallen and has a deep wound on his right patella. The patient has had a Perm-A-Cath, which had been removed and now was dialyzed through an AV fistula. MEDICATION RECONCILIATION: Current medications include vancomycin with dialysis, colestipol 2 g daily, multivitamin daily, diltiazem CD 120 mg daily, paroxetine 20 mg daily, carvedilol 3.125 mg b.i.d., oral vancomycin 125 mg p.o. every 6 hours, insulin sliding scale, iron 325 mg b.i.d., glucose, Glucagon p.r.n., valacyclovir 1000 mg daily and vitamin K 10 mg p.o. one time. SOCIAL HISTORY: The patient is single. He comes from a long-term acute hospital. Has no history of tobacco, alcohol or drugs. REVIEW OF SYSTEMS: The patient is alert, but not really very verbal. He denies any specific complaints. He does seem to notice discomfort when he is manipulated or disturbed. PHYSICAL EXAMINATION: GENERAL: The patient appears older than his stated age, alert, but I am not [address] [address] CONSULTATION Name: MICHELLE NGO Room #: 452-P ADM IN M.R.#: [id number] Admission: 07/08/17 Attend Phys: Pepito Mccoy MD Discharge: Date of : 59 Report #: [id number] sure he is oriented, as he is minimally verbal. He appears not in any distress. VITAL SIGNS: Show temperature 97.9, blood pressure 114/71, pulse 80 and the O2 saturation is 94%. SKIN: Very sallow. ENT EXAMINATION: Negative. HEART: Heart sounds S1, S2. I could not appreciate any murmur. LUNGS: Clear to anterior auscultation. ABDOMEN: Belly is soft, not tender. EXTREMITIES: Show the right below-knee amputation. There is a deep wound on the prepatellar area about 2 x 3 cm. This is aligned with some necrotic skin on the edge. There is some granulation tissue and fibrin in the center of the wound. If there is not exposed bone, we are very close to expose bone. The amputation wound is healing well. The right hand shows the non-healing wound on the dorsum of the hand. This has created a 4 x 3 cm wound with necrotic tendon sheath at the base. The thumb is mummified from the tip to the MCP joint. The index finger is mummified to the DIP joint. There are small discolored areas on the tips of the third, fourth and fifth fingers. The patient is not able to extend the fingers and is developing a club with the fingers. I cannot appreciate any motion at the wrist, but I am not sure the patient was cooperating. There is an incision on the flexor surface of the wrist from the previous debridement, which still has sutures in place and is healing slowly. The left leg and left arm are unremarkable. LABORATORY DATA: White count is 17.2, hemoglobin 7.4 and platelet 191,000. Electrolytes: Sodium 129, potassium 3.9, chloride 95, bicarbonate 24, BUN 26, creatinine 2.3 and glucose 266. Blood cultures x 2 were taken today and are pending. The blood cultures from May show the MRSA, which had a relatively high JESSENIA to vancomycin at 2, but had MICs to daptomycin and linezolid at 1. IMPRESSION: Endocarditis with necrosis of the right hand, probably due to septic emboli, possibly related to a steal from the dialysis access. The patient was given a loading dose of vancomycin. We will see if his cultures continue to be positive. The patient is scheduled for amputation above the wrist tomorrow. Dr. Vealrde will return tomorrow. He worked closed with the patient during the previous hospitalization and can assess the status of the endocarditis and the need for further antibiotic therapy. With the high-grade bacteremia, I suspect we are looking at least 6, if not 8 weeks, of parenteral antibiotic therapy from the last positive blood culture on 05/24/2017. In addition, the patient has very poor wound healing. There may be osteomyelitis of the right patella. This wound may require surgical revision or possibly even [facility] [address] [place] [address] CONSULTATION Name: MICHELLE NGO Room #: 452-P [facility].#: [id number] Admission: 07/08/17 Attend Phys: Pepito Mccoy MD Discharge: Date of : 59 Report #: [id number] revascularization. Overall, the patient appears very debilitated and prognosis must be considered rather guarded. By: [id number] Marek Alvarenga MD /nt
--- NOTE | ~2017-07-08 | HC ---
[facility] [place] [address] CONSULTATION Name: MICHELLE NGO Room #: 452- ADM IN M.R.#: [id number] Admission: 07/08/17 Attend Phys: Pepito Mccoy MD Discharge: Date of : 59 Report #: [id number] THIS REPORT FOR: //name// CC: Pepito [facility] DATE OF SERVICE: 07/09/2017 REASON FOR CONSULTATION: Preop surgical risk assessment. HISTORY OF PRESENT ILLNESS: This is a very unfortunate 61-year-old gentleman that has multiple prior amputations for various reasons. 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 He now has developed septic arthritis in the right wrist where he has evidence of both dry and wet gangrene. The patient has undergone debridement and it has not been able to clear the septic arthritis. He denies any chest pain, pressure, tightness or heaviness, but does have a history of cardiomyopathy with ejection fractions of 25 or so percent without any medical treatment due to apparent autonomic abnormalities, issues that are somewhat unclear from the old records. He denies any chest pain, pressure, tightness or heaviness, but he has no activity whatsoever. He has some orthopnea for which he sleeps with his head elevated and not noted any significant progression of this. PAST MEDICAL HISTORY: Significant for: 1. Diabetes mellitus, triopathy. 2. Peripheral vascular disease with bilateral amputations. 3. Cardiomyopathy, etiology of which is uncertain. 4. Staph aureus endocarditis, recurrent as stated above. 5. Chronic kidney disease, on renal dialysis. PAST SURGICAL HISTORY: Significant for: 1. Multiple amputations of different extremities and toes. 2. Right upper arm fistula. 3. Hernia repair in the past. ALLERGIES: No known drug allergies. MEDICATIONS: On admission are noted in the chart and this is a limited list: Diltiazem, famotidine, hydrocodone, acetaminophen, lactobacillus probiotic, Lidoderm cream, melatonin, midodrine hydrochloride, vitamins, Renvela 800 t.i.d., zolpidem and the rest can be found in the chart. 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 Does not smoke, but is a former smoker. He is a former alcoholic by history, but he is recovering now. [facility] [address] [place] [address] CONSULTATION Name: MICHELLE NGO Room #: 452-P [facility] IN M.R.#: [id number] Admission: 07/08/17 Attend Phys: Pepito Mccoy MD Discharge: Date of : 59 Report #: [id number] FAMILY HISTORY: Negative for significant premature cardiovascular disease. REVIEW OF SYSTEMS: Except for the symptoms previously mentioned and those commensurate with comorbid state, the 10-point review of system is negative. PHYSICAL EXAMINATION: GENERAL: He is an ill-appearing, disheveled gentleman, resting comfortably in no acute distress. HEENT: Normocephalic, atraumatic. Pupils are equal, round, reactive to light and accommodation. Extraocular muscles are intact. Sclerae and conjunctivae are anicteric. NECK: JVD is normal. Carotid upstrokes are bilaterally symmetrical. No bruits are heard. No thyromegaly. No lymphadenopathy. LUNGS: Clear to auscultation. No wheezes, rhonchi or crackles. No CVA tenderness. CARDIAC: Demonstrates a regular rhythm. Normal first and second heart sounds. No ventricular or atrial gallops, no rubs noted. No murmurs. No lifts or heaves, PMI normal. ABDOMEN: Soft, nontender, nondistended. Normal bowel sounds. EXTREMITIES: Demonstrates a dry gangrene in the right thumb and what appears to be wet gangrene in the first and second fingers and into the wrist. There is also bilateral lower extremity amputation. NEUROLOGIC: Cranial nerves 2-12 are grossly normal and symmetrical. PSYCHIATRIC: Alert, oriented with normal affect. SKIN: Warm and dry. IMPRESSION AND PLAN: 1. Cardiomyopathy, untreated due to multiple other issues, which prevented guideline directed medical therapy. This is unfortunate because it increases his risk of any possibilities or any abnormalities that can proceed. We will need to monitor and avoid decompensation from his baseline. 2. Prior history of endocarditis, apparently recurrent as per Infectious Disease. 3. Septic arthritis, as per Infectious Disease. 4. Diabetes mellitus, as per primary care. 5. Chronic kidney disease, on dialysis, being dialyzed as we speak and as Nephrology. 6. Cardiovascular risk of noncardiac surgery: The patient is a high risk due to his medical comorbidities and untreated cardiomyopathy for both general and spinal anesthesia. Regional may be a lower risk, but the volume status and [address] [address] CONSULTATION Name: MICHELLE NGO Room #: 452-P ADM IN M.R.#: [id number] Admission: 07/08/17 Attend Phys: Pepito Mccoy MD Discharge: Date of : 59 Report #: [id number] volume maintenance will still be significantly difficult to maintain stable, so the risk even of regional is at least moderate. <ELECTRONICALLY SIGNED> By: Flavio Almeida MD 07/12/17 1242 [id number] Flavio Almeida MD /nt
--- NOTE | ~2017-07-08 | HC ---
[facility] [place] [address] CONSULTATION Name: MICHELLE NGO Room #: 452-P ADM IN M.R.#: [id number] Admission: 07/08/17 Attend Phys: Pepito Mccoy MD Discharge: Date of : 59 Report #: [id number] THIS REPORT FOR: //name// [facility] DATE OF SERVICE: 07/13/2017 PERSONAL PHYSICIAN: Dr. Mccoy CHIEF COMPLAINT: Multiple decubitus ulcers. HISTORY OF PRESENT ILLNESS: This is a 61-year-old white male who has a longstanding history of peripheral vascular disease and multiple amputations. The patient was admitted at this time for septic arthritis of his right wrist and now is status post amputation of the right upper extremity at the level of the forearm. The patient was noted to have multiple decubitus ulcers on admission. We have been asked to follow for these at this time. The patient himself is an extremely poor historian, is currently on dialysis at this time and is unable to answer any questions and the history is obtained from the chart. PAST MEDICAL HISTORY: History of anemia, end-stage renal disease on hemodialysis; type 2 diabetes, peripheral arterial disease with multiple amputations, cardiomyopathy with ejection fraction of 25%, peripheral neuropathy, history of alcohol abuse, history of currently with Clostridium difficile colitis. CURRENT MEDICATIONS: Multiple including IV antibiotics. DRUG ALLERGIES: None. SOCIAL HISTORY: The patient has a remote history of smoking as well as alcoholism. Currently resides in a care facility. FAMILY HISTORY: Not pertinent to current medical condition. REVIEW OF SYSTEMS: Unable to be obtained because of the patient's altered mental status. PHYSICAL EXAMINATION: VITAL SIGNS: Temperature 36.5, pulse 77, respiration rate 18 and BP 105/48. GENERAL: This is awake, but not alert white male who appears chronically ill appearing. HEENT: Normocephalic and atraumatic. Mucous membranes are dry. Pupils are round. Sclerae white. [address] [address] CONSULTATION Name: MICHELLE NGO Room #: 45- ADM IN M.R.#: [id number] Admission: 07/08/17 Attend Phys: Pepito Mccoy MD Discharge: Date of : 59 Report #: [id number] NECK: Supple without JVD. LUNGS: Slight diminished breath sounds heard throughout. HEART: Regular with 2/6 systolic ejection murmur. ABDOMEN: Soft, otherwise nontender. EXTREMITIES: The patient has an AV fistula in the right upper extremity, which is functioning well. Right mid forearm has a surgical wound from the amputation site, which is clean and dry. Evaluation of the sacral area reveals an unstageable decubitus ulcer with 100% slough. Periulcer is otherwise intact without signs of significant erythema or warmth. There is no tunneling or undermining. Evaluation of the right knee reveals an unstageable ulceration directly over the area of the kneecap of the patella with some slough noted in the external circumferentially. On the left lateral right below the knee amputation site is intact. Left lateral ankle has a deep tissue injury, but no other associated ulcerations are noted on the left foot. NEUROLOGIC: Cranial nerves 2-12 are grossly intact. Motor and sensory are grossly intact. ____ Please note the patient is nonverbal at this time essentially. LABORATORY DATA: White count 11.0, hemoglobin 9.7. BUN 29, creatinine 2.6 and total bilirubin 3.1. C-reactive protein 162.2, albumin markedly low at 1.2. WOUND CARE COURSE: At this time, we will place in a sacral foam dressing over the sacral region, have this changed every other day and as needed for soilage. We will put the patient on low air loss mattress and have him turned every 2 hours. We will start silver foam over the right knee and have this changed every other day. On the surgical wound of the right forearm, we will continue with Xeroform and gauze over the surgical site. On the left lateral ankle use Betadine and heel protection at all times. IMPRESSION: 1. Unstageable pressure ulcer to the sacrococcygeal region present on admission. 2. Unstageable decubitus ulcer, right knee, present on admission. 3. Surgical wound to the right forearm, status post mid forearm amputation. 4. Deep tissue injury in left lateral ankle, present on admission. 5. End-stage renal disease, on hemodialysis. 6. Severe protein calorie malnutrition with albumin of 1.2. 7. Generalized debility. PLAN: Described in length as above. We will continue to follow the patient while he is here. [address] [address] CONSULTATION Name: MICHELLE NGO Room #: 452-P ADM IN M.R.#: [id number] Admission: 07/08/17 Attend Phys: Pepito Mccoy MD Discharge: Date of : 59 Report #: [id number] I appreciate the ability to consult. By: [id number] Cheo Orourke MD /rosibel
--- NOTE | ~2017-07-08 | HC ---
[facility] [place] [address] CONSULTATION Name: MICHELLE NGO Room #: 452-P [facility] IN M.R.#: [id number] Admission: 07/08/17 Attend Phys: Pepito Mccoy MD Discharge: 07/15/17 Date of : 59 Report #: [id number] THIS REPORT FOR: //name// [facility] DATE OF SERVICE: 07/09/2017 NEPHROLOGY CONSULTATION REASON FOR CONSULTATION: End-stage renal disease, requiring hemodialysis. HISTORY OF PRESENT ILLNESS: This is a 61-year-old male who has suffered extensively from the ravages of long-standing diabetes mellitus. He has end-stage renal disease and is chronic hemodialysis patient. He was just in the hospital here at [facility] from 05/16/2017 through 05/28/2017. He left the hospital here and was sent to [facility]. He is now readmitted because of ongoing ischemia of the right hand with planned amputation of the right hand and wrist. From a dialysis standpoint, the patient has end-stage renal disease and is a chronic hemodialysis patient. He has been dialyzing most recently via right upper arm brachiocephalic fistula. I do not have the records of when he last dialyzed, but he should be due for dialysis today. The patient has extensive problems with vascular disease and infection. His infections have been well documented as being MRSA. Numerous blood cultures were positive during his admission last month. He has been on a prolonged course of vancomycin. Infection sites have been numerous, including his tunneled dialysis catheter, which is now removed, and he is dialyzing with his fistula; right atrial mass/infection, consistent with an endocarditis, right wrist. Again, he has been on vancomycin. The right hand has been worsening recently due to ischemia and necrosis. The right thumb is totally necrosed at this point. He has ischemic eschar on both the right second and third digits on the patti. Because of the infection in the wrist and also these ischemic digits, the plan was to come in and have right hand amputation at the forearm. The patient has long-standing diabetes mellitus, extensive peripheral neuropathy. His BKA was a number of months ago. He has had problems with anemia and has been on erythropoietin therapy, but he has also required some transfusion as hemoglobin is down again at this time. PAST MEDICAL HISTORY: In addition to the diabetes, he has extensive vascular disease. He has had a previous right kwngp-kby-drly amputation in 03/[address] [address] CONSULTATION Name: MICHELLE NGO Room #: 452-P [facility] IN [facility].#: [id number] Admission: 07/08/17 Attend Phys: Pepito Mccoy MD Discharge: 07/15/17 Date of : 59 Report #: [id number] [facility]. He also has had a right inguinal herniorrhaphy. He has had multiple dialysis access procedures. He has a history of coronary artery disease and ischemic cardiomyopathy. He has had an extensive evaluation of this right atrial mass and the plan for that from what I can tell is that he was to continue receiving long-term antibiotics. Overall, he has suffered progressive debility. More recently, he has also had problem with some Clostridium difficile colitis. Most recent ejection fraction 25%. MEDICATIONS: Includes diltiazem 100 mg daily, famotidine 20 mg daily, iron 325 mg b.i.d., hydrocodone for pain, midodrine 10 mg t.i.d., Nephrocaps daily, Renvela 800 mg t.i.d. and numerous p.r.n. medications. FAMILY HISTORY: Noncontributory. SOCIAL HISTORY: The patient is single. He has been in numerous health care centers and most recently in [facility]. REVIEW OF SYSTEMS: He is not able to give me much on this, unaware on how much he has been eating. He does not appear dyspneic. He does not have any chest pain that I can tell. Unaware of recent fevers, chills or sweats. PHYSICAL EXAMINATION: GENERAL: Chronically ill-appearing male. VITAL SIGNS: Blood pressure 117/84, heart rate 90, temperature 97.1 degrees Fahrenheit and oxygen saturation 90%. HEENT EXAMINATION: Shows pupils are equal and reactive. Sclerae nonicteric. Oral mucosa is moist. NECK: Neck veins are not distended. Neck is supple. CHEST: Show shallow respirations bilaterally. No rales, rhonchi or wheezes. HEART: Has a regular rate and rhythm, somewhat distant heart tones. ABDOMEN: Has a few bowel sounds present. It is soft, nontender. Difficult to tell, but it looks like he still has an inguinal hernia present. EXTREMITIES: Show the right opzyy-akl-unge amputation as well as previous left great toe amputation. Right hand shows the totally necrotic right thumb and the ischemic areas on the second and third digits. The right wrist is not currently hot. Right upper arm fistula has active flow. LABORATORY DATA: Sodium 135, potassium 4.1, chloride 99, bicarbonate 22, BUN 29 and creatinine 2.6. Total bilirubin 3.1, calcium 7.5, phosphorus 3.8, AST 18 and ALT 21. Total protein 4.7. Albumin 1.2. White count 15.4, hemoglobin 6.6, hematocrit 20.4 and platelets 196,000. Differential on the white count 90 neutrophils, 4 lymphs and 5 monocytes. Blood gas earlier today, pH of 7.48, pCO2 of 30.2, pO2 of 78.9 and lactate 1.50. Chest x-ray shows some cardiomegaly with mild pulmonary vascular congestion and some pleural effusion. [facility] [address] [place] [address] CONSULTATION Name: MICHELLE NGO Room #: 452-P [facility] IN M.R.#: [id number] Admission: 07/08/17 Attend Phys: Pepito Mccoy MD Discharge: 07/15/17 Date of : 59 Report #: [id number] ASSESSMENT AND PLAN: 1. End-stage renal disease. We will dialyze him today. We will start with 1 liter of ultrafiltration and see how he does. He may need more ultrafiltration down the line. 2. Ischemic right hand and digits, with recent methicillin-resistant Staphylococcus aureus infection of the right wrist. Scheduled for amputation later today. 3. Methicillin-resistant Staphylococcus aureus on multiple prior cultures, remain on vancomycin. Dr. Alvarenga has seen him and ordered that. 4. Recent Clostridium difficile colitis, on therapy. 5. Long-standing diabetes mellitus. 6. Anemia, more severe. We will transfuse him today, particularly since he is going to surgery later this afternoon. Continue weekly erythropoietin supplementation. 7. Progressive chronic debility. This has been discussed on his lengthy hospitalization last month, about options for potential palliative care as this patient has a very poor prognosis for return to much in the way of meaningful existence. <ELECTRONICALLY SIGNED> By: Alberto Hill MD 07/16/17 0712 0836 [id number] Alberto Hill MD /nt
[~2017-07-08 06:54] MED LIST: AMBIEN 5 MG TABL5 M1 PO; ARANESP100 MCG/0. SUBQ; ARANESP100 MCG/1 IV; BUSPIRONE HCL10 MG PO; CARDIZEM CD120 MG PO; CARVEDILOL3.125 MG PO; CEREFOLIN TABL1 EAC1 PO; COLACE100 MG PO; COLESTIPOL HCL1 G1 PO; COREG3.125 MG PO; COUMADIN 2 MG TA2 M1 PO; CUBICIN500 MG IVPB; DEXTROSE 5%-L1000 ML IV; ENOXAPARIN30 MG/0.1 SUBQ; GENTAMICIN40 MG/1 ML IV; HUMALOG100 UNIT/2 SUBQ; HYDROCODON-ACE1 EAC7 PO; IRON325 PO; JUVEN PACKET1 EAC1 PO; KEFLEX250 MG PO; LEVEMIR SUBQ; LIDOCAINE1 EACH TOP; MELATONIN10 M2 PO; MIDODRINE HCL 55 M1 PO; NEPHROCAPS SOFT1 CAP PO; NOVOLOG100 UNIT/1 SUBQ; PAXIL10 MG PO; PEPCID20 MG PO; PROBIOTIC1 EAC1 PO; RENVELA800 MG PO; SODIUM BICARBO650 M3 PO; TEFLARO 600 MG600 MG IV; TYLENOL EXTRA500 MG PO; VALACYCLOVIR HCL1 GM PO; VAN500AD IV; VANCOCIN 125 M125 M1 PO; VITAMIN B-1100 M1 PO; VITAMIN D3400 UNIT PO; ZOSYN 2.25 GR2.25 GM IV
[2017-07-08 07:56] LABS: ABSOLUTE NEUTROPHILS 15.7 thou/uL (1.4-8.2); BASOPHILS 0.6 % (0.0-2.0); EOSINOPHILS 0.6 % (0.0-3.0); HEMOGLOBIN 7.4 gm/dL (14.0-18.0); LYMPHOCYTES 3.6 % (24.0-44.0); MCH 29.9 pg (26.0-34.0); MCHC 32.4 g/dL (28.0-37.0); MCV 92.3 fL (80.0-100.0); MONOCYTES 3.9 % (1.0-8.0); PLATELET COUNT 191 thou/uL (150-400); POLYS 91.3 % (36.0-66.0); RBC 2.49 mil/uL (4.50-6.00); RDW 18.1 % (10.5-14.5); WBC 17.2 thou/uL (4.0-11.0)
[2017-07-08 08:08] LABS: CREATININE 2.3 mg/dL (0.7-1.3); INR 1.5; POTASSIUM 3.9 mmol/L (3.5-5.1); PROTIME 15.5 Seconds (9.3-11.4)
[2017-07-08 09:28] LABS: ANISOCYTOSIS 2+
[2017-07-08 16:10] VITALS: BP 114/71
[2017-07-08 20:41] VITALS: BP 114/71
[2017-07-09] VITALS (9 sets, daily range): BP systolic 117–127; BP diastolic 70–84
[2017-07-09 04:37] LABS: ALBUMIN 1.2 g/dL (3.4-5.0); CALCIUM 7.5 mg/dL (8.5-10.1); CREATININE 2.6 mg/dL (0.7-1.3); DIRECT BILIRUBIN 2.5 mg/dL (<0.1-0.3); PHOSPHORUS 3.8 mg/dL (2.5-4.9); POTASSIUM 4.1 mmol/L (3.5-5.1); TOTAL BILIRUBIN 3.1 mg/dL (<0.1-1.0); TOTAL PROTEIN 4.7 g/dL (6.4-8.2)
[2017-07-09 04:40] LABS: BE(vivo) -0.7 mmol/L (-2 to +3); HCO3 22.4 mmol/L (22.0-26.0); PCO2 30.2 mmHg (35.0-45.0); PO2 78.9 mmHg (80.0-100.0); pH 7.488 (7.360-7.450); sO2 96.6 % (92.0-98.0)
[2017-07-09 04:42] LABS: EOSINOPHILS 0.6 % (0.0-3.0)
[2017-07-09 04:44] LABS: ABSOLUTE NEUTROPHILS 13.8 thou/uL (1.4-8.2); BASOPHILS 0.3 % (0.0-2.0); HEMATOCRIT 20.4 % (42.0-52.0); HEMOGLOBIN 6.6 gm/dL (14.0-18.0); LYMPHOCYTES 4.1 % (24.0-44.0); MCHC 32.2 g/dL (28.0-37.0); MCV 93.2 fL (80.0-100.0); PLATELET COUNT 196 thou/uL (150-400); RBC 2.19 mil/uL (4.50-6.00); RDW 18.6 % (10.5-14.5); WBC 15.4 thou/uL (4.0-11.0)
[2017-07-10 03:59] VITALS: BP 110/73
[2017-07-10 04:23] LABS: POTASSIUM 3.5 mmol/L (3.5-5.1)
[2017-07-10 04:24] LABS: ABSOLUTE NEUTROPHILS 9.5 thou/uL (1.4-8.2); BASOPHILS 0.4 % (0.0-2.0); EOSINOPHILS 1.6 % (0.0-3.0); HEMATOCRIT 28.7 % (42.0-52.0); HEMOGLOBIN 9.7 gm/dL (14.0-18.0); LYMPHOCYTES 6.8 % (24.0-44.0); MCH 31.1 pg (26.0-34.0); MCHC 33.7 g/dL (28.0-37.0); MCV 92.2 fL (80.0-100.0); MONOCYTES 4.6 % (1.0-8.0); PLATELET COUNT 177 thou/uL (150-400); POLYS 86.6 % (36.0-66.0); RBC 3.11 mil/uL (4.50-6.00); RDW 17.6 % (10.5-14.5)
[2017-07-10 07:58] VITALS: BP 111/70
[2017-07-10 17:49] VITALS: BP 102/55
[2017-07-10 20:09] VITALS: BP 106/62
[2017-07-11 08:20] VITALS: BP 96/56
[2017-07-11 16:13] VITALS: BP 97/62
[2017-07-11 20:10] VITALS: BP 104/61
[2017-07-12 03:26] VITALS: BP 98/61
[2017-07-12 08:00] VITALS: BP 96/57
[2017-07-12 16:00] VITALS: BP 108/70
[2017-07-12 20:15] VITALS: BP 111/79
[2017-07-13 04:03] VITALS: BP 98/67
[2017-07-13 08:00] VITALS: BP 105/48
[2017-07-13 15:55] VITALS: BP 104/77
[2017-07-13 19:57] VITALS: BP 98/57
[2017-07-14 03:31] VITALS: BP 93/55
[2017-07-14 08:20] VITALS: BP 97/54
[2017-07-14 16:19] VITALS: BP 104/68
[2017-07-14 19:20] VITALS: BP 100/60
[2017-07-15 04:38] VITALS: BP 123/72
[2017-07-15 05:11] VITALS: BP 123/72
[2017-07-15 08:50] VITALS: BP 152/67
[2017-07-15] MEDS ORDERED: VANCOMYCIN500 MG/100 IV (12:44)
== END 2017-07-15 16:30 | DRG 474 ==
LOC: TBA 06:54 → 4W 06:54 → PRE 09:13 → 4W 10:03 → PRE 10:28 → 4W 07-15 16:30
PROVIDERS: Internal Medicine; Internal Medicine Nephrology; Orthopaedic Surgery Hand Surgery
PROC: 30233N1 Transfusion of Nonautologous Red Blood Cells into Peripheral Vein, Percutaneous Approach (ICD-10-PCS; principal; 2017-07-09)
PROC: 5A1D70Z Performance of Urinary Filtration, Intermittent, Less than 6 Hours Per Day (ICD-10-PCS; 2017-07-10)
PROC: 0X6 Anatomical Regions, Upper Extremities, Detachment (ICD-10-PCS; 2017-07-10)
PROC: 5A1D70Z Performance of Urinary Filtration, Intermittent, Less than 6 Hours Per Day (ICD-10-PCS; 2017-07-11)
PROC: 5A1D70Z Performance of Urinary Filtration, Intermittent, Less than 6 Hours Per Day (ICD-10-PCS; 2017-07-13)
DX: M00.031 Staphylococcal arthritis, right wrist (principal); N18.6 End stage renal disease; E43 Unspecified severe protein-calorie malnutrition; G93.41 Metabolic encephalopathy; I33.0 Acute and subacute infective endocarditis; R65.11 Systemic inflammatory response syndrome (SIRS) of non-infectious origin with acute organ dysfunction; D61.9 Aplastic anemia, unspecified; M86.8X8 Other osteomyelitis, other site; E11.52 Type 2 diabetes mellitus with diabetic peripheral angiopathy with gangrene; I96 Gangrene, not elsewhere classified; A04.72 Enterocolitis due to Clostridium difficile, not specified as recurrent; Z86.73 Personal history of transient ischemic attack (TIA), and cerebral infarction without residual deficits; I25.5 Ischemic cardiomyopathy; E11.22 Type 2 diabetes mellitus with diabetic chronic kidney disease; E11.42 Type 2 diabetes mellitus with diabetic polyneuropathy; L89.150 Pressure ulcer of sacral region, unstageable; S90.02XA Contusion of left ankle, initial encounter; E11.69 Type 2 diabetes mellitus with other specified complication; I25.10 Atherosclerotic heart disease of native coronary artery without angina pectoris; B95.62 Methicillin resistant Staphylococcus aureus infection as the cause of diseases classified elsewhere; D63.8 Anemia in other chronic diseases classified elsewhere; L89.890 Pressure ulcer of other site, unstageable; Z68.28 Body mass index [BMI] 28.0-28.9, adult; Z84.89 Family history of other specified conditions
CPT/HCPCS: 10047; 32100; 50101; 50386; 50951; 56526; 57006; 57091; 62110; 62900; 70005